=== PATIENT | male | born 1945 | race African-American/Black ===

== ENCOUNTER 2023-06-03 21:41 | Inpatient (IN) | payer OTHER ==
[~2023-06-03] VITALS: Ht 170.2 cm; Wt 63.0 kg
[2023-06-03 21:55] VITALS: RESP 26
[2023-06-03] MEDS ORDERED: NITROGLYCERIN 50MG PREMIX 250 ML IV ONE (22:00)
[2023-06-03] MEDS ORDERED: NITROGLYCERIN SPRAY/4.9GM CAN TL ONE (22:00)
[2023-06-03] MEDS ORDERED: NITROGLYCERIN SPRAY/4.9GM CAN TL NR (22:15)
[2023-06-03] MEDS: NITROGLYCERIN 0.4MG TABLET SL SL NR (22:25)
[2023-06-03] MEDS: NITROGLYCERIN 50MG PREMIX 250 ML IV ONE (22:30)
[2023-06-03 22:45] VITALS: RESP 24
[2023-06-04] VITALS (22 sets, daily range): BP systolic 15–174; BP diastolic 68–99; PULSE 70–91; RESP 11–28; TEMP 97.3–98
[2023-06-04 00:09] LABS: BASOPHILS % 0.5 % (0.0-2.0); DIFFERENTIAL COMMENT 0; EOSINOPHILS % 1.2 % (0.0-5.0); HEMOGLOBIN. 10.7 g/dL (14.0-18.0); LYMPHOCYTES % 10.6 % (20.0-50.0); MEAN CORPUSCULAR HEMOGLOBIN 33.2 pg (28.0-32.0); MEAN CORPUSCULAR HGB CONC 32.4 g/dL (31.0-37.0); MEAN CORPUSCULAR VOLUME 102.4 fL (80.0-94.0); MEAN PLATELET VOLUME 9.4 fl (7.4-10.4); MONOCYTES % 7.6 % (2.0-8.0); NEUTROPHILS % 80.1 % (40.0-76.0); PLATELET 141 x1000/uL (130-400); RED BLOOD CELL COUNT 3.22 mill/uL (4.7-6.1); RED CELL DISTRIBUTION WIDTH 14.8 % (11.6-14.6); WHITE BLOOD COUNT 10.4 x1000/uL (4.5-11.0)
[2023-06-04 00:24] LABS: CHLORIDE 109 mEq/L (98-107); POTASSIUM 4.8 mEq/L (3.5-5.1); SODIUM 145 mEq/L (136-145)
[2023-06-04 00:25] LABS: CALCIUM 8.3 mg/dL (8.7-10.4); CARBON DIOXIDE 24 mEq/L (21-32)
[2023-06-04 00:30] LABS: GLUCOSE 84 mg/dL (70-105)
[2023-06-04 00:31] LABS: UREA NITROGEN BLOOD 68 mg/dL (9-23)
[2023-06-04 00:32] LABS: ALANINE AMINOTRANSFERASE 69 IU/L (10-49); ALBUMIN 3.9 g/dL (3.2-4.8); ASPARTATE AMINOTRANSFERASE 78 IU/L (<34)
[2023-06-04 00:33] LABS: BILIRUBIN TOTAL 0.4 mg/dL (0.1-1.0); PROTEIN TOTAL 7.1 g/dL (6.0-8.3)
[2023-06-04 00:48] LABS: TROPONIN I HIGH SENSITIVITY 250 ng/L (3.0-53)
[2023-06-04] MEDS ORDERED: DIPHENHYDRAMINE 50MG/ML VIAL IV PRN (07:30)
[2023-06-04] MEDS ORDERED: ONDANSETRON HCL 4MG/2ML INJ IV PRN (07:30)
[2023-06-04] MEDS ORDERED: TRAMADOL 50MG TABLET PO PRN (07:30)
[2023-06-04] MEDS ORDERED: CLONIDINE 0.1MG TABLET PO PRN (07:30)
[2023-06-04] MEDS ORDERED: IPRATROPIUM/ALBUTEROL 0.5-3(2.5)MG/3ML NEB HHN PRN (07:30)
[2023-06-04] MEDS ORDERED: GUAIFENESIN 200MG/10ML SUGAR FREE UDC PO PRN (07:30)
[2023-06-04] MEDS ORDERED: ACETAMINOPHEN 325MG TABLET PO PRN (07:30)
[2023-06-04] MEDS ORDERED: DOCUSATE SODIUM 100MG CAPSULE PO PRN (07:30)
[2023-06-04] MEDS: AMLODIPINE 5MG TABLET PO SCH (08:41)
[2023-06-04] MEDS: FUROSEMIDE 40MG/4ML VIAL IV SCH (09:10)
[2023-06-04] MEDS: NITROGLYCERIN OINT 1GM/INCH UDPKT TD SCH ×2 (11:17→11:30)
[2023-06-04] MEDS: METHYLPREDNISOLONE SOD SUCC 40MG/ML (ACT-O-VIAL) IV SCH (11:18)
[2023-06-04] MEDS: CLONIDINE 0.1MG TABLET PO SCH (11:18)
[2023-06-04] MEDS: ASPIRIN 81MG EC TABLET PO SCH (11:18)
[2023-06-04 11:33] LABS: HEPATITIS A AB IGM NEGATIVE (Negative)
[2023-06-04 11:34] LABS: HEPATITIS B CORE AB IGM NEGATIVE (Negative); HEPATITIS C AB NON REACTIVE (Neg) (Negative)
[2023-06-04 11:38] LABS: HEPATITIS B SURFACE ANTIGEN NEGATIVE (Negative)
[2023-06-04] MEDS: ENOXAPARIN 30MG/0.3ML SYR SUBCUT SCH (12:35)
[2023-06-04] MEDS ORDERED: NALOXONE HCL 0.4MG/ML VIAL IV PRN (16:30)
[2023-06-04 17:19] LABS: TROPONIN I HIGH SENSITIVITY 385 ng/L (3.0-53)
[2023-06-05] VITALS (22 sets, daily range): BP systolic 121–151; BP diastolic 70–95; PULSE 64–102; RESP 11–22; TEMP 97–97.6
[2023-06-05 00:11] LABS: TROPONIN I HIGH SENSITIVITY 205 ng/L (3.0-53)
[2023-06-05 05:54] LABS: CHLORIDE 103 mEq/L (98-107); POTASSIUM 4.7 mEq/L (3.5-5.1); SODIUM 138 mEq/L (136-145)
[2023-06-05 05:55] LABS: CALCIUM 8.7 mg/dL (8.7-10.4); CARBON DIOXIDE 23 mEq/L (21-32)
[2023-06-05 06:00] LABS: GLUCOSE 133 mg/dL (70-105); TRIGLYCERIDE 47 mg/dL (0-150); UREA NITROGEN BLOOD 53 mg/dL (9-23)
[2023-06-05 06:01] LABS: LDL CHOLESTEROL 135 mg/dL (5-100)
[2023-06-05 06:02] LABS: ALANINE AMINOTRANSFERASE 46 IU/L (10-49); ALBUMIN 4.1 g/dL (3.2-4.8); ASPARTATE AMINOTRANSFERASE 26 IU/L (<34); BILIRUBIN TOTAL 0.4 mg/dL (0.1-1.0); CHOLESTEROL 181 mg/dL (<200); HDL CHOLESTEROL 57 mg/dL (>55); PROTEIN TOTAL 7.4 g/dL (6.0-8.3)
[2023-06-05 06:06] LABS: CREATININE 8.8 mg/dL (0.6-1.3)
[2023-06-05 06:49] LABS: TROPONIN I HIGH SENSITIVITY 181 ng/L (3.0-53)
[2023-06-05 07:18] LABS: HEMATOCRIT. 33.3 % (42.0-52.0); MEAN CORPUSCULAR HEMOGLOBIN 32.7 pg (28.0-32.0); MEAN CORPUSCULAR HGB CONC 32.9 g/dL (31.0-37.0); MEAN CORPUSCULAR VOLUME 99.4 fL (80.0-94.0); MEAN PLATELET VOLUME 10.4 fl (7.4-10.4); PLATELET 133 x1000/uL (130-400); RED BLOOD CELL COUNT 3.35 mill/uL (4.7-6.1); RED CELL DISTRIBUTION WIDTH 14.4 % (11.6-14.6); WHITE BLOOD COUNT 7.3 x1000/uL (4.5-11.0)
[2023-06-05 07:44] LABS: DIFFERENTIAL COMMENT 1
[2023-06-05] MEDS: AMLODIPINE 10MG TABLET PO SCH (09:00)
[2023-06-05 10:39] LABS: BG BASE EXCESS -0.6 mmol/L (-2.0-2.0); BG CARBOXYHEMOGLOBIN 0.3 % (0.5-1.5); BG DEOXYHEMOGLOBIN 9.1 % (0.0-5.0); BG FRACTION INSPIRED OXYGEN 21; BG HCO3 ACT 25.6 mmol/L (22.0-26.0); BG METHEMOGLOBIN 0.1 % (0.0-1.5); BG OXYGEN SATURATION 90.9 % (92.0-98.5); BG OXYHEMOGLOBIN 90.5 % (94.0-97.0); BG PCO2 48.3 mmHg (35.0-45.0); BG PH 7.342 (7.350-7.450); BG PO2 63.6 mmHg (75.0-100.0); BG SAMPLE SITE RIGHT BRACHIAL; BG TOTAL HEMOGLOBIN 12.8 g/dL (12.0-18.0); BG VENT MODE ROOM AIR
[2023-06-05 12:05] LABS: PLATELET ESTIMATE NORMAL
[2023-06-05] MEDS ORDERED: LOSA25TA26 MT (13:45)
[2023-06-05] MEDS ORDERED: ISMO20 PO (13:47)
[2023-06-05] MEDS ORDERED: CARV25TA47 PO (13:49)
[2023-06-05] MEDS ORDERED: APIX5TAB PO (13:51)
[2023-06-05] MEDS ORDERED: FURO40TA5 MT (13:52)
[2023-06-05] MEDS ORDERED: NITR0.4T49 SL (13:55)
[2023-06-05] MEDS ORDERED: CHOL400D7 PO (13:59)
[2023-06-05] MEDS ORDERED: FERR236T3 MT (14:01)
[2023-06-05] MEDS ORDERED: PRAV20TA57 MT (14:07)
[2023-06-05] MEDS ORDERED: ATORVASTATIN CALCIUM 10MG TABLET PO SCH (21:00)
[2023-06-06] VITALS (8 sets, daily range): BP systolic 112–138; BP diastolic 60–85; PULSE 71–83; RESP 12–18; TEMP 97.1–97.9; O2SAT 97
[2023-06-06 07:22] LABS: HEMATOCRIT. 34.5 % (42.0-52.0); HEMOGLOBIN. 11.3 g/dL (14.0-18.0); MEAN CORPUSCULAR HEMOGLOBIN 32.1 pg (28.0-32.0); MEAN CORPUSCULAR HGB CONC 32.8 g/dL (31.0-37.0); MEAN CORPUSCULAR VOLUME 97.8 fL (80.0-94.0); PLATELET 128 x1000/uL (130-400); RED BLOOD CELL COUNT 3.53 mill/uL (4.7-6.1); RED CELL DISTRIBUTION WIDTH 14.4 % (11.6-14.6); WHITE BLOOD COUNT 11.9 x1000/uL (4.5-11.0)
[2023-06-06 07:29] LABS: POTASSIUM 4.8 mEq/L (3.5-5.1)
[2023-06-06 07:30] LABS: CALCIUM 8.3 mg/dL (8.7-10.4)
[2023-06-06 07:55] LABS: CREATININE 9.6 mg/dL (0.6-1.3)
[2023-06-06 08:09] LABS: DIFFERENTIAL COMMENT 1
[2023-06-06] MEDS: ISOSORBIDE MONONITRATE 30MG TABLET SR 24HR PO SCH (11:40)
[2023-06-06] MEDS ORDERED: FURO40TA5 PO (14:05)
[2023-06-06] MEDS ORDERED: CALC667C PO (14:05)
[2023-06-06] MEDS ORDERED: LOSA50TA41 PO (14:05)
[2023-06-06] MEDS ORDERED: ISOS30TA91 PO (14:06)
[2023-06-06 16:37] LABS: PLATELET ESTIMATE DECREASED
[2023-06-06] MEDS: ATORVASTATIN CALCIUM 10MG TABLET PO SCH (21:00)
== END 2023-06-06 22:45 | disposition short-term general hospital (02) | DRG 208 ==
LOC: ER 21:41 → 5EST 06-04 01:26
PROVIDERS: ADMIT Hospitalist; ATTEND Hospitalist
PROC: 5A09357 Assistance with Respiratory Ventilation, Less than 24 Consecutive Hours, Continuous Positive Airway Pressure (ICD-10-PCS; 2023-06-03)
PROC: 5A1D70Z Performance of Urinary Filtration, Intermittent, Less than 6 Hours Per Day (ICD-10-PCS; principal; 2023-06-04)
PROC: 5A09357 Assistance with Respiratory Ventilation, Less than 24 Consecutive Hours, Continuous Positive Airway Pressure (ICD-10-PCS; 2023-06-04)
PROC: 5A1935Z Respiratory Ventilation, Less than 24 Consecutive Hours (ICD-10-PCS; 2023-06-04)
PROC: 5A1D70Z Performance of Urinary Filtration, Intermittent, Less than 6 Hours Per Day (ICD-10-PCS; 2023-06-05)
DX: J96.01 Acute respiratory failure with hypoxia (principal); I50.33 Acute on chronic diastolic (congestive) heart failure; N18.6 End stage renal disease; I13.2 Hypertensive heart and chronic kidney disease with heart failure and with stage 5 chronic kidney disease, or end stage renal disease; I16.1 Hypertensive emergency; J45.909 Unspecified asthma, uncomplicated; D63.1 Anemia in chronic kidney disease; E78.5 Hyperlipidemia, unspecified; Z99.2 Dependence on renal dialysis; Z79.82 Long term (current) use of aspirin; Z79.899 Other long term (current) drug therapy
CPT/HCPCS: 36415; 36600; 71045; 80048; 80053; 80061; 82375; 82805; 83880; 84484; 85025; 86705; 86709; 87340; 90935; 93005; 93306; 93970; 94660; 99291; J1650; J1940; J2920; J3490

== ENCOUNTER 2024-06-18 12:03 | Emergency (ER) | payer MEDICARE, OTHER ==
[~2024-06-18] VITALS: Ht 172.7 cm; Wt 70.0 kg
[~2024-06-18 12:03] MED LIST: APIX5TAB PO; CALC667C PO; CARV25TA47 PO; FERR236T3 MT; FURO40TA5 PO; ISOS30TA91 PO; LOSA50TA41 PO; PRAV20TA57 MT
[2024-06-18 12:16] VITALS: O2SAT 99
[2024-06-18 12:33] VITALS: TEMP 36.5
[2024-06-18 12:56] LABS: HEMATOCRIT. 21.4 % (42.0-52.0); MEAN CORPUSCULAR HEMOGLOBIN 27.6 pg (28.0-32.0); MEAN CORPUSCULAR HGB CONC 32.8 g/dL (31.0-37.0); MEAN CORPUSCULAR VOLUME 84.1 fL (80.0-94.0); MEAN PLATELET VOLUME 7.3 fl (7.4-10.4); PLATELET 206 x1000/uL (130-400); RED BLOOD CELL COUNT 2.55 mill/uL (4.7-6.1); RED CELL DISTRIBUTION WIDTH 17.7 % (11.6-14.6); WHITE BLOOD COUNT 5.6 x1000/uL (4.5-11.0)
[2024-06-18 13:06] LABS: DIFFERENTIAL COMMENT 1
[2024-06-18 13:20] LABS: CHLORIDE 91 mEq/L (98-107); POTASSIUM 3.9 mEq/L (3.5-5.1); SODIUM 128 mEq/L (136-145)
[2024-06-18 13:21] LABS: CALCIUM 8.8 mg/dL (8.7-10.4); CARBON DIOXIDE 27 mEq/L (21-32)
[2024-06-18 13:26] LABS: GLUCOSE 109 mg/dL (70-105); UREA NITROGEN BLOOD 66 mg/dL (9-23)
[2024-06-18 13:28] LABS: TROPONIN I HIGH SENSITIVITY 46 ng/L (3.0-53)
[2024-06-18 13:43] LABS: CREATININE 15.4 mg/dL (0.6-1.3)
[2024-06-18 14:06] LABS: ANISOCYTOSIS 1+; PLATELET ESTIMATE NORMAL
[2024-06-18 14:35] VITALS: BP 155/83; PULSE 83; RESP 11; O2SAT 100
== END 2024-06-18 14:44 | disposition home or self-care (01) ==
LOC: ER 12:03 → CANBEDREQ 13:59 → ER 14:44
DX: R11.2 Nausea with vomiting, unspecified (principal); D64.9 Anemia, unspecified; I12.0 Hypertensive chronic kidney disease with stage 5 chronic kidney disease or end stage renal disease; N18.6 End stage renal disease; Z99.2 Dependence on renal dialysis; Z88.8 Allergy status to other drugs, medicaments and biological substances; Z88.6 Allergy status to analgesic agent; Z79.899 Other long term (current) drug therapy
CPT/HCPCS: 36415; 71045; 80048; 83880; 84484; 85025; 93005; 99285